=== PATIENT | male | born 1940 | race Caucasian/White ===

== ENCOUNTER 2017-06-15 11:48 | Inpatient (IN) | payer MEDICARE, OTHER ==
[~2017-06-15] VITALS: Ht 177.8 cm; Wt 68.0 kg
[2017-06-15] MEDS ORDERED: SODIUM CHLORIDE FLUSH 10ML SYR IVF ONE (12:30)
[2017-06-15 12:55] LABS: HEMATOCRIT 42.8 % (39.2-51.8); HEMOGLOBIN 14.4 g/dL (13.7-18.0); WHITE BLOOD COUNT 6.6 x10^3/uL (3.4-10)
[2017-06-15 13:04] LABS: ASPARTATE AMINO TRANSFERASE 15 U/L (15-37); BLOOD UREA NITROGEN 15 mg/dL (7-18)
[2017-06-15 13:08] LABS: IS PT STATUS REG ER OR PRE ER? YES
[2017-06-15] MEDS ORDERED: CLOPIDOGREL 75 MG TABLET ONE ×2 (13:55→14:01)
[2017-06-15] MEDS ORDERED: SODIUM CHLORIDE 0.9% 1,000 ML IV ONE (14:00)
[2017-06-15] MEDS ORDERED: CLOPIDOGREL 75 MG TABLET PO ONE (14:00)
[2017-06-15] MEDS ORDERED: BISACODYL 10 MG SUPP PR PRN (17:00)
[2017-06-15] MEDS ORDERED: DOCUSATE 100 MG CAPSULE PO PRN (17:00)
[2017-06-15] MEDS ORDERED: POLYETHYLENE GLYCOL 17 GM PACKET PO PRN (17:00)
[2017-06-15] MEDS ORDERED: PROMETHAZINE 25 MG/ML, 1ML IM PRN (17:00)
[2017-06-15] MEDS ORDERED: ENOXAPARIN 40 MG/0.4 ML SQ SCH (17:00)
[2017-06-15 17:40] LABS: POTASSIUM,URINE RANDOM 16 mmol/L
[2017-06-15 19:53] VITALS: BP_SYST 137; BP_SYST 150; BP_SYST 158; BP_DIAS 78; BP_DIAS 84; BP_DIAS 90
[2017-06-15] MEDS: ENOXAPARIN 40 MG/0.4 ML SQ SCH (21:42)
[2017-06-16] VITALS (7 sets, daily range): BP systolic 103–151; BP diastolic 71–86
[2017-06-16 05:39] LABS: HEMATOCRIT 40.3 % (39.2-51.8); HEMOGLOBIN 13.5 g/dL (13.7-18.0)
[2017-06-16 06:05] LABS: ASPARTATE AMINO TRANSFERASE 15 U/L (15-37); BLOOD UREA NITROGEN 19 mg/dL (7-18)
[2017-06-16] MEDS ORDERED: ACETAMINOPHEN 325 MG TABLET ONE (13:27)
[2017-06-16] MEDS: ACETAMINOPHEN 325 MG TABLET PO PRN ×2 (13:32→20:54)
[2017-06-16] MEDS ORDERED: MIDODRINE 5 MG TABLET PO SCH (16:00)
[2017-06-16] MEDS: MIDODRINE 5 MG TABLET PO SCH ×2 (18:06→20:52)
[2017-06-16] MEDS ORDERED: CYANOCOBALAMIN 1,000 MCG/ML, 1ML IM ONE (18:30)
[2017-06-16] MEDS: ENOXAPARIN 40 MG/0.4 ML SQ SCH (20:52)
[2017-06-17 01:53] VITALS: BP 132/77
[2017-06-17 07:24] VITALS: BP_SYST 111; BP_SYST 147; BP_SYST 155; BP_DIAS 73; BP_DIAS 80; BP_DIAS 85
[2017-06-17] MEDS: MIDODRINE 5 MG TABLET PO SCH ×3 (08:26→20:42)
[2017-06-17] MEDS ORDERED: ACETYLCYSTEINE 600 MG CAPSULE PO SCH (12:00)
[2017-06-17] MEDS: ACETYLCYSTEINE 600 MG CAPSULE PO SCH ×2 (12:55→20:42)
[2017-06-17 15:06] VITALS: BP 119/72
[2017-06-17] MEDS ORDERED: DOCUSATE 100 MG CAPSULE PO PRN (19:00)
[2017-06-17] MEDS ORDERED: POLYETHYLENE GLYCOL 17 GM PACKET PO PRN (19:00)
[2017-06-17] MEDS ORDERED: PROMETHAZINE 25 MG/ML, 1ML IM PRN (19:00)
[2017-06-17] MEDS ORDERED: ACETAMINOPHEN 325 MG TABLET PO PRN (19:00)
[2017-06-17] MEDS ORDERED: BISACODYL 10 MG SUPP PR PRN (19:00)
[2017-06-17] MEDS ORDERED: TEMAZEPAM 15 MG CAPSULE PO PRN (20:30)
[2017-06-17 20:33] VITALS: BP 139/76
[2017-06-17] MEDS: ENOXAPARIN 40 MG/0.4 ML SQ SCH (20:43)
[2017-06-18 01:51] VITALS: BP_SYST 105; BP_SYST 110; BP_SYST 86; BP_DIAS 60; BP_DIAS 68; BP_DIAS 69
[2017-06-18 08:16] VITALS: BP_SYST 111; BP_SYST 130; BP_SYST 131; BP_DIAS 77; BP_DIAS 82
[2017-06-18] MEDS ORDERED: GADOBUTROL 7.5 MMOL/7.5 ML PFS ONE (08:52)
[2017-06-18 11:00] VITALS: BP_SYST 101; BP_SYST 113; BP_SYST 126; BP_DIAS 68; BP_DIAS 69; BP_DIAS 76
[2017-06-18] MEDS: MIDODRINE 5 MG TABLET PO SCH (11:01)
[2017-06-18] MEDS: ACETYLCYSTEINE 600 MG CAPSULE PO SCH (11:01)
[2017-06-18] MEDS ORDERED: MIDO5TAB PO (11:57)
[2017-06-18 12:21] VITALS: BP 122/80
[2017-06-19] MEDS ORDERED: ENOXAPARIN 40 MG/0.4 ML SQ SCH (19:30)
== END 2017-06-18 15:50 | disposition home or self-care (01) | DRG 312 ==
LOC: ED 13:18 → EDIP 13:55 → 4WST 18:14
PROVIDERS: ADMIT Hospitalist; ATTEND Hospitalist
DX: I95.1 Orthostatic hypotension (principal); I50.30 Unspecified diastolic (congestive) heart failure; R00.1 Bradycardia, unspecified; E53.8 Deficiency of other specified B group vitamins; D75.89 Other specified diseases of blood and blood-forming organs; H81.90 Unspecified disorder of vestibular function, unspecified ear; F41.9 Anxiety disorder, unspecified; R27.0 Ataxia, unspecified; H81.10 Benign paroxysmal vertigo, unspecified ear; Z87.891 Personal history of nicotine dependence; Z85.51 Personal history of malignant neoplasm of bladder; Z86.73 Personal history of transient ischemic attack (TIA), and cerebral infarction without residual deficits; Z88.0 Allergy status to penicillin; I77.810 Thoracic aortic ectasia
CPT/HCPCS: 36415; 70450; 70553; 71010; 80053; 81003; 82436; 82533; 82607; 82746; 83735; 83880; 83930; 83935; 84100; 84133; 84300; 84443; 84484; 85025; 85610; 85730; 93005; 93306; 99285; A9585; J1650; J3420; J7030